=== PATIENT | female | born 1945 | race Hispanic/Latino ===

== ENCOUNTER 2023-04-27 08:09 | Outpatient (CLI) | payer MEDICARE, MEDICAID | END 2023-04-27 08:10 | disposition home or self-care (01) | LOC: CSHULT 08:09 | PROVIDERS: ATTEND Specialist | DX: R79.9 Abnormal finding of blood chemistry, unspecified (principal); N13.30 Unspecified hydronephrosis | CPT/HCPCS: 76700 ==

== ENCOUNTER 2023-10-06 08:38 | Outpatient (CLI) | payer MEDICARE, MEDICAID | END 2023-10-06 08:39 | disposition home or self-care (01) | LOC: CSHCT 08:38 | PROVIDERS: ATTEND Urology | DX: N13.30 Unspecified hydronephrosis (principal) | CPT/HCPCS: 74176 ==